=== PATIENT | male | born 1960 | race Caucasian/White ===

== ENCOUNTER → 2018-07-01 15:18 | Outpatient (CLI) | payer OTHER, SELFPAY ==
[2018-07-04 10:11] LABS: PTT-LA Screen 30 seconds (< OR = 40); dDRVVT Screen 42 seconds (< OR = 45)
[2018-07-04 22:22] LABS: Protein S Antigen 105 % normal (70-140)
[2018-07-05 19:19] LABS: Protein C Antigen 140 % normal (70-140)
== END ==
PROVIDERS: PCP Family Medicine; Visit Provider Family Medicine
DX: I26.99 Other pulmonary embolism without acute cor pulmonale (principal)
CPT/HCPCS: 36415; 85300; 85301; 85302; 85306; 85597; 85613; 85730

== ENCOUNTER → 2018-07-18 08:13 | Outpatient (CLI) | payer OTHER, SELFPAY ==
--- NOTE | 2018-07-18 | DI.CT.S_ITS ---
PROCEDURE: CT CHEST W CON INDICATIONS: LUNG NODULE / BILATERAL PULMONARY EMBOLI TECHNIQUE: After the administration of intravenous contrast, 5 mm thick sections acquired from the pulmonary apices to the posterior costophrenic angles. 7 mm thick coronal and sagittal MIP reformats were acquired. For radiation dose reduction, the following was used: automated exposure control, adjustment of mA and/or kV according to patient size. COMPARISON: Outside Facility, RG, CT THORAX WITH CONTRAST, 04/17/2018, 22:05. FINDINGS: Image quality: Excellent. Lungs and pleura: The prior outside CT scan from [facility] dated 04/17/18 was reviewed. That study had identified a deep posterior left costophrenic sulcus lung nodule seen on series No chest 2 image 34 and series 4 image 18. The current examination is performed with intravenous contrast and in the area of prior CT concern the lung parenchyma is entirely normal. No additional nodule has developed elsewhere. There is minimal vertically oriented lung scarring also present on the prior study abutting the posterior border of the lateral aspect of the left major fissure in the area of the superior segment left lower lobe. No acute air space opacities are seen that would suggest presence of pneumonia. No pleural effusions or pneumothorax. Central and peripheral airways are patent and normal in caliber. Mediastinum: Heart size is normal. No pericardial effusion. No mediastinal or hilar adenopathy by size criteria. Thoracic aorta and central pulmonary arteries are normal in size. Esophagus is normal in caliber. No hiatal hernia. Bones and chest wall: No suspicious bony lesions. No vertebral body compression fractures. No axillary or supraclavicular adenopathy by size criteria. Thyroid gland appears normal where well visualized. Abdomen: Visualized upper abdominal solid organs appear normal. Upper abdominal bowel loops are normal in caliber. Water density cyst inferior right liver near the junction of the anterior and posterior segments, at the axial level of the gallbladder. IMPRESSION: Resolution of a nodular radiodensity from the far inferior deep left posterior costophrenic sulcus, where the lung parenchyma now appears normal. Minimal lung scarring lateral aspect of the superior segment left lower lobe near the major fissure. No malignant appearing pulmonary mass lesion is found. Dictated by: Carlito Manjarrez M.D. on 07/19/2018 at 15:11 Approved by: Carlito Manjarrez M.D. on 07/19/2018 at 15:18
--- NOTE | 2018-07-18 | DI.ECHO.S_ITS ---
[facility]---------+ [facility] +---------+ : : [address] : : : : [id number] : : : : Phone: [phone]---------+ Echocardiogram Report + + :Name: DONTAE BARRON Study Date: 07/18/2018 Height: 64 in : :[facility] Weight: 215 lb: : Gender: Male BSA: 2.0 m2 : :: 1960 Age: 57 yrs : :Reason For Study: LUNG NODULE : : Performed By: Melissa Ruth : :Referring: DONAVAN SMITH : + + Interpretation Summary Normal both left and right ventricular size and function. The ejection fraction is 60-65%. No valvular abnormality. Mildly enlarged ascending aorta. Procedure: A two-dimensional transthoracic echocardiogram with color flow and Doppler was performed. The study quality was technically adequate. There is no prior echocardiogram noted for this patient. The heart rate ranged between 58-73 bpm during the study. Left Ventricle: The left ventricle is normal in size, wall thickness, and systolic function without any focal wall motion abnormalities. The ejection fraction is estimated to be 60-65%. There are no obvious focal wall motion abnormalities noted but poor endocardial definition reduces the sensitivity for the detection of such. Right Ventricle: The right ventricle is normal in size and function. Atria: Both atria are normal in size. There is no Doppler evidence for an interatrial shunt. Mitral Valve: The mitral valve is normal in structure and function. There is trace mitral regurgitation. Aortic Valve: The aortic valve is trileaflet. The aortic valve opens well. There is no aortic valve stenosis. No aortic regurgitation is present. Tricuspid Valve: The tricuspid valve is normal in structure and function. There is a trace or physiologic amount of tricuspid regurgitation. The right ventricular systolic pressure is estimated to be at least at least 23 mmHg based on an estimated right atrial pressure of 3 mm Hg. Pulmonic Valve: The pulmonic valve leaflets are thin and pliable; valve motion is normal. There is no pulmonic valvular regurgitation. Great Vessels: The aortic root is normal size. The ascending aorta is mildly enlarged. The aortic arch is at the upper limits of normal in size. The pulmonary artery is normal size. The IVC is of normal diameter and collapses greater than 50% with a sniff. This suggests a low right atrial pressure of 3 mm Hg. Pericardium/ Pleura There is no pericardial effusion. There is no pleural effusion. MMode/2D Measurements & Calculations LVIDd: 4.9 cm LVOT diam: 2.5 cm LVIDs: 2.7 cm Ao root diam: 3.5 cm FS: 44.5 % asc Aorta Diam: 3.7 cm EPSS: 0.22 cm Ao Arch Diam (Prox Trans): 3.1 cm IVSd: 0.90 cm LVPWd: 1.1 cm LV ricketts. diameter/BSA (cm/m^2): 2.4 LV sys. diameter/BSA (cm/m^2): 1.3 LA A2 area: 15.5 cm2 RA long axis: 5.6 cm LA A4 area: 21.7 cm2 RA area: 20.8 cm2 LA length (vol): 5.7 cm RA vol: 66.2 ml LA vol: 49.9 ml RA : 32.8 ml/m2 LA vol index: 24.7 ml/m2 RVD1 (basal): 4.2 cm TAPSE: 1.9 cm Doppler Measurements & Calculations Ao V2 max: 133.7 cm/sec LVOT Max Truong: 114.4 cm/sec Ao V2 mean: 95.1 cm/sec LV V1 max P.2 mmHg Ao max P.2 mmHg LV V1 VTI: 24.4 cm Ao mean P.0 mmHg SABINO(I,D): 4.1 cm2 Ao V2 VTI: 28.5 cm SABINO(V,D): 4.1 cm2 sev ratio: 0.86 SABINO indexed to BSA (cm^2/m^2): 2.0 MV E max truong: 78.6 cm/sec TR max truong: 223.3 cm/sec MV A max truong: 78.1 cm/sec TR max P.9 mmHg MV E/A: 1.0 PA V2 max: 86.0 cm/sec Med Peak E' Truong: 7.1 cm/sec PA V2 mean: 59.5 cm/sec E/E' med: 11.1 PA mean P.6 mmHg Lat Peak E' Truong: 9.4 cm/sec E/E' lat: 8.4 E/e' average: 9.8 MV dec time: 0.23 sec Electronically signed by: Yamileth Reid on Reading Physician:07/19/2018 05:09 PM
== END ==
PROVIDERS: Family Provider Family Medicine; PCP Family Medicine; Visit Provider Family Medicine
DX: R91.1 Solitary pulmonary nodule (principal); I26.99 Other pulmonary embolism without acute cor pulmonale; I77.810 Thoracic aortic ectasia
CPT/HCPCS: 71260; 93306; Q9967

== ENCOUNTER → 2020-08-23 15:44 | Outpatient (ROUT) | payer OTHER, SELFPAY ==
[2020-08-23 16:06] LABS: COVID19 -Nasal RAPID Negative (Negative)
== END ==
PROVIDERS: Family Provider Family Medicine; PCP Family Medicine; Visit Provider Family Medicine
DX: Z20.822 Contact with and (suspected) exposure to COVID-19 (principal)
CPT/HCPCS: 87635

== ENCOUNTER → 2020-08-30 12:43 | Outpatient (ROUT) | payer OTHER, SELFPAY ==
[2020-08-30 13:23] LABS: COVID19 -Nasal RAPID Negative (Negative)
== END ==
PROVIDERS: Family Provider Family Medicine; PCP Family Medicine; Visit Provider Family Medicine
DX: Z20.822 Contact with and (suspected) exposure to COVID-19 (principal)
CPT/HCPCS: 87635

== ENCOUNTER → 2021-03-07 12:57 | Outpatient (CLI) | payer OTHER, SELFPAY ==
--- NOTE | 2021-03-07 12:57 | DI.MRI.S_ITS ---
PROCEDURE: MR SHOULDER RT W CON INDICATIONS: Bicipital tendinitis, right shoulder TECHNIQUE: After the administration of 12 mL of dilute intra-articular Gadolinium contrast, oblique coronal T1 and T2 spin echo with fat saturation, oblique sagittal T1 spin echo with and without fat saturation, oblique sagittal T2 fast spin echo with fat saturation, axial T1 spin echo with fat saturation through the shoulder. COMPARISON: [facility], , [place] SHOULDER INJECTION MR/CT RT, 03/07/2021, 13:43. FINDINGS: Image quality: Excellent. Rotator cuff: There is high-grade partial bursal sided and intrasubstance tearing of the posterior supraspinatus tendon and the anterior infraspinatus tendon superimposed on moderate tendinosis. The teres minor and subscapularis tendons are intact. There is no significant rotator cuff muscle atrophy. Bones and bursae: There is no acute trabecular bone injury. Chronic traction cystic changes are seen at the posterosuperior humeral head in the greater and lesser tuberosities near the rotator cuff tendon insertions. Moderate to severe degenerative changes are seen at the acromioclavicular joint. There is a small amount of subacromial/subdeltoid bursal fluid. Capsule and soft tissues: There is a small nondisplaced tear of the superior labrum. Additional nondisplaced tearing is seen at the anteroinferior labrum. There is mildly increased signal in the intra-articular portion of the biceps long head tendon, compatible with tendinosis. No intra-articular loose body is seen. IMPRESSION: 1. High-grade partial bursal sided and intrasubstance tearing of the posterior supraspinatus tendon and the anterior infraspinatus tendon superimposed on moderate tendinosis. 2. Small nondisplaced tear of the superior labrum and likely the anteroinferior labrum. 3. Mild tendinosis of the proximal biceps long head tendon. 4. 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 5. Small subacromial/subdeltoid bursal effusion or bursitis. Dictated by: Sridhar Dominguez M.D. on 03/07/2021 at 14:35 Approved by: Sridhar Dominguez M.D. on 03/07/2021 at 14:47
--- NOTE | 2021-03-07 13:01 | DI.RAD.S_ITS ---
PROCEDURE: [place] SHOULDER INJECTION MR/CT RT INDICATIONS: Bicipital tendinitis, right shoulder COMPARISON: None TECHNIQUE: The indications, alternatives, benefits, risks, and complications of the procedure were explained to the patient. Written informed consent was obtained and placed in the chart. The shoulder was examined fluoroscopically and a site for needle placement chosen for entry into the glenohumeral joint from an anterior approach. The skin was prepped and draped in a sterile fashion, and 1% lidocaine infiltrated from skin down to joint capsule. A spinal needle was inserted into the glenohumeral joint, and a small amount of iodinated contrast media injected to confirm intra-articular placement of the needle tip. This was followed by approximately 15 mL dilute solution of a gadolinium containing MR contrast agent. The needle was removed and a dressing was applied. The patient was given postprocedural instructions and sent to the MR suite for MR imaging. FINDINGS: A single fluoroscopic spot image demonstrates intra-articular location of injected iodinated contrast. IMPRESSION: Successful fluoroscopically guided administration of dilute Gadolinium solution into the shoulder joint for MR arthrogram. Dictated by: Arvin Mckeon M.D. on 03/07/2021 at 15:55 Approved by: Arvin Mckeon M.D. on 03/07/2021 at 15:58
== END ==
PROVIDERS: Family Provider Family Medicine; PCP Family Medicine; Referring Provider Family Medicine; Visit Provider Family Medicine
DX: M75.21 Bicipital tendinitis, right shoulder (principal); M19.011 Primary osteoarthritis, right shoulder; M75.111 Incomplete rotator cuff tear or rupture of right shoulder, not specified as traumatic; S43.491A Other sprain of right shoulder joint, initial encounter
CPT/HCPCS: 23350; 73222; 77002

== ENCOUNTER → 2022-07-12 14:37 | Outpatient (CLI) | payer OTHER, SELFPAY ==
--- NOTE | 2022-07-12 14:38 | DI.ECHO.S_ITS ---
[facility]---------+ [facility] +---------+ : : [address] : [address] : : : : [id number] : : : : Phone: [phone]---------+ Echocardiogram Report + + :Name: DONTAE BARRON Study Date: 07/12/2022 Height: 74 in : :[facility] ReadingLocation: Weight: 220 lb : : Gender: Male BSA: 2.3 m2 : :: 1960 Age: 61 yrs BP: 148/80 mmHg: :Reason For Study: THORACIC AORTIC ANEURYSM : :Ordering Physician: LUIS, : :DONAVAN Performed By: Ani Loving : :Referring: DONAVAN SMITH : + + Interpretation Summary The ejection fraction is estimated to be 55-60%. Diastolic parameters suggest probable normal left ventricular diastolic function and normal filling pressures. The right ventricle grossly appears normal in size with probable normal systolic function. The left atrium is moderately dilated. The IVC is of normal diameter and collapses greater than 50% with a sniff. This suggests a low right atrial pressure of 3 mm Hg. No significant valvular disease. Procedure: A two-dimensional transthoracic echocardiogram with color flow and Doppler was performed. Comparison is made with the echocardiogram of 07/18/2018. The study quality was technically difficult. A contrast injection of Definity was performed to improve assessment of LV function. Contrast was injected into an intravenous site in the right arm. A total of 2 cc of contrast was given. The patient was in sinus bradycardia with heart rates between 49-58 bpm during the exam. Left Ventricle: The left ventricle is normal in size and wall thickness. The ejection fraction is estimated to be 55-60%. There are no focal wall motion abnormalities. Diastolic parameters suggest probable normal left ventricular diastolic function and normal filling pressures. Right Ventricle: The right ventricle is not well visualized. The right ventricle grossly appears normal in size with probable normal systolic function. Atria: The left atrium is moderately dilated. Right atrial size is normal. There is no Doppler evidence for an interatrial shunt. Mitral Valve: There is a flat closure plane of the the mitral valve leaflets. There is trace mitral regurgitation. Aortic Valve: The aortic valve is trileaflet. The aortic valve opens well. There is no aortic valve stenosis. No aortic regurgitation is present. Tricuspid Valve: The tricuspid valve is normal in structure and function. There is trace tricuspid regurgitation. Pulmonic Valve: The pulmonic valve leaflets are thin and pliable; valve motion is normal. There is a trace or physiologic amount of pulmonic regurgitation. Great Vessels: The aortic root is normal size. The ascending aorta is at the upper limits of normal in size. The IVC is of normal diameter and collapses greater than 50% with a sniff. This suggests a low right atrial pressure of 3 mm Hg. Pericardium/ Pleura There is no pericardial effusion. There is no pleural effusion. MMode/2D Measurements & Calculations LVIDd: 5.0 cm LVOT diam: 2.3 cm LVIDs: 3.1 cm Ao root diam: 3.3 cm FS: 37.1 % asc Aorta Diam: 3.7 cm EPSS: 0.63 cm Ao Arch Diam (Prox Trans): 3.7 cm IVSd: 0.82 cm LVPWd: 0.92 cm LV ricketts. diameter/BSA (cm/m^2): 2.2 LV sys. diameter/BSA (cm/m^2): 1.4 LA A2 area: 28.6 cm2 RA long axis: 5.4 cm LA A4 area: 23.9 cm2 RA area: 18.0 cm2 LA length (vol): 5.9 cm RA vol: 51.3 ml LA vol: 97.6 ml RA : 22.7 ml/m2 LA vol index: 43.1 ml/m2 IVC diam: 1.4 cm TAPSE: 2.6 cm Doppler Measurements & Calculations Ao V2 max: 144.1 cm/sec LVOT Max Truong: 80.1 cm/sec Ao V2 mean: 95.2 cm/sec LV V1 max P.6 mmHg Ao max P.3 mmHg LV V1 VTI: 20.4 cm Ao mean P.1 mmHg SABINO(I,D): 2.8 cm2 Ao V2 VTI: 31.5 cm SABINO(V,D): 2.4 cm2 sev ratio: 0.65 SABINO indexed to BSA (cm^2/m^2): 1.2 MV E max truong: 86.0 cm/sec PA V2 max: 105.1 cm/sec MV A max truong: 51.8 cm/sec PA V2 mean: 72.5 cm/sec MV E/A: 1.7 PA mean P.4 mmHg Med Peak E' Truong: 7.2 cm/sec PA pr(Accel): 36.2 mmHg E/E' med: 12.0 Lat Peak E' Truong: 11.5 cm/sec E/E' lat: 7.5 E/e' average: 9.7 MV dec time: 0.24 sec SVLVOT): 87.2 ml Reading Physician:ANGUS
== END ==
PROVIDERS: Family Provider Family Medicine; PCP Family Medicine; Referring Provider Family Medicine; Visit Provider Family Medicine
DX: I71.20 Thoracic aortic aneurysm, without rupture, unspecified (principal)
CPT/HCPCS: 93306; Q9957

== ENCOUNTER → 2024-01-01 15:53 | Outpatient (ROUT) | payer OTHER, SELFPAY ==
[2024-01-01 16:01] LABS: Add Manual Diff / Slide Review NO; Basophils Absolute Auto 0 /uL (0-100); Basophils Percent Auto 0.3 % (0-2); Eosinophils Absolute Auto 100 /uL (0-450); Eosinophils Percent Auto 1.8 % (2-4); Hematocrit 50.6 % (41-53); Hemoglobin 16.8 g/dL (13.5-17.5); Lymphocytes Absolute Auto 2400 /uL (1100-4500); Lymphocytes Percent Auto 47.6 % (25-40); Mean Corpuscular HGB Conc 33.2 % (30-36); Mean Corpuscular Hemoglobin 30.6 PG (26-34); Mean Corpuscular Volume 92.1 fL (80-100); Monocytes Absolute Auto 400 /uL (0-900); Monocytes Percent Auto 8.3 % (3-14); Neutrophils Absolute Auto 2100 /uL (1500-7000); Platelet Count 273 X10^3/uL (150-400); Red Blood Cell Count 5.49 X10^6/uL (4.5-5.9); Red Cell Distribution Width 13.5 % (11.6-14.8)
[2024-01-01 16:20] LABS: Alanine Aminotransferase 23 IU/L (<50); Albumin 4.7 g/dL (3.5-5.0); Albumin Globulin Ratio 1.7 (1.0-2.8); Alkaline Phosphatase 60 U/L (38-126); Aspartate Aminotransferase 30 IU/L (17-59); BUN Creatinine Ratio 20.8 (6-22); Bilirubin Total 1.3 mg/dL (0.2-1.3); Blood Urea Nitrogen 16 mg/dL (9-20); Calcium 9.1 mg/dL (8.4-10.2); Carbon Dioxide 28 mmol/L (22-32); Chloride 103 mmol/L (98-107); Cholesterol 282 mg/dL (140-199); Estimated Glomerular Filt Rate > 60 mL/min (>60); Globulin 2.8 g/dL (1.7-4.1); Glucose 61 mg/dL (80-110); HDL Cholesterol 60 mg/dL (40-60); HEMOLYSIS < 15 (0-50); LDL Cholesterol Calculated 190 mg/dL (<100); Potassium 3.9 mmol/L (3.4-5.1); Sodium 138 mmol/L (137-145); Total Protein 7.5 g/dL (6.3-8.2); Triglycerides 160 mg/dL (35-150)
[2024-01-01 16:22] LABS: Hemoglobin A1C% w Est Avg Glu 5.6 % (4.0-6.0)
[2024-01-01 16:50] LABS: Prostate Specific Antigen 0.273 ng/mL (0.10-4.00)
[2024-01-01 16:54] LABS: Ferritin 73 ng/mL (18-464)
[2024-01-01 17:09] LABS: Vitamin B12 493 pg/mL (239-931)
[2024-01-01 17:24] LABS: Vitamin D 25 Hydroxy (D3) 55.6 ng/mL (30.0-100.0)
== END ==
PROVIDERS: Family Provider Family Medicine; PCP Family Medicine; Visit Provider Family Medicine
DX: Z00.00 Encounter for general adult medical examination without abnormal findings (principal); E78.49 Other hyperlipidemia; R53.83 Other fatigue; E55.9 Vitamin D deficiency, unspecified; G90.09 Other idiopathic peripheral autonomic neuropathy; D75.1 Secondary polycythemia; Z86.711 Personal history of pulmonary embolism
CPT/HCPCS: 80053; 80061; 82306; 82607; 82728; 83036; 84153; 84443; 85025